=== PATIENT | male | born 1985 | race Caucasian/White ===

== ENCOUNTER 2021-07-28 15:05 | Emergency (ER) | payer BC ==
[~2021-07-28] VITALS: Ht 172.7 cm; Wt 79.4 kg
[2021-07-28] MEDS ORDERED: LIPITOR10 MG PO (15:14)
[2021-07-28 15:53] LABS: ABSOLUTE LYMPHOCYTES 2.2 thou/uL (0.8-5.3); ABSOLUTE MONOCYTES 0.7 thou/uL (0.0-1.2); ABSOLUTE NEUTROPHILS 4.9 thou/uL (1.6-8.1); BASOPHILS 0.4 %; EOSINOPHILS 0.2 %; HEMATOCRIT 42.3 % (42.0-52.0); HEMOGLOBIN 15.1 gm/dL (14.0-18.0); MCH 32.9 pg (26.0-34.0); MCHC 35.6 g/dL (28.0-37.0); MCV 92.3 fL (80.0-100.0); MONOCYTES 8.4 %; MPV 8.8 fl. (7.2-11.1); NUCLEATED RBCS 0 /100WBC; PLATELET COUNT* 256 thou/uL (150-400); RBC 4.59 mil/uL (4.50-6.00); RDW-CV 13.1 % (10.5-14.5); WBC 7.7 thou/uL (4.0-11.0)
[2021-07-28 15:58] LABS: CALCIUM 8.9 mg/dL (8.5-10.1); CREATININE 1.2 mg/dL (0.6-1.3); POTASSIUM 3.7 mmol/L (3.5-5.1)
[2021-07-28 16:08] LABS: ALBUMIN 4.2 g/dL (3.4-5.0); TOTAL BILIRUBIN 0.3 mg/dL (<0.1-1.0); TOTAL PROTEIN 7.8 g/dL (6.4-8.2)
[2021-07-28 16:47] LABS: URINE BILIRUBIN NEGATIVE (Negative); URINE BLOOD NEGATIVE (Negative); URINE CLARITY CLEAR; URINE COLOR YELLOW; URINE GLUCOSE-RANDOM NEGATIVE (Negative); URINE KETONES NEGATIVE (Negative); URINE LEUKOCYTES-REFLEX NEGATIVE (Negative); URINE NITRITE-REFLEX NEGATIVE (Negative); URINE PROTEIN NEGATIVE (Negative); URINE SPECIFIC GRAVITY 1.015 (1.005-1.030); URINE UROBILINOGEN 0.2 E.U./dl (0.2-1.0)
[2021-07-28 17:24] VITALS: BP 112/72
--- NOTE | 2021-07-29 10:25 | EKG ---
[place] [address] ELECTROCARDIOGRAM REPORT Name: EZEQUIEL SAMUEL Room: [facility]#: [id number] Admission: 07/28/21 Attend Phys: Discharge: 07/28/21 Date of : 83 Date of Service: 07/28/21 1521 Report #: [id number] THIS REPORT FOR: //name// [facility] ED Test Date: 2021-07-28 Test Time: 15:21:44 Pat Name: EZEQUIEL SAMUEL Department: Room: Gender: Dermatology Nurse: : 1985 Requested By: Stephani Major Order Number: [id number] MD: Leo Lassiter Measurements Intervals [place] Rate: 77 P: 83 MI: 119 QRS: 85 QRSD: 91 T: 85 QT: 374 QTc: 424 Interpretive Statements Sinus rhythm Borderline short MI interval Abnormal R-wave progression, early transition Minimal ST elevation, anterior leads, early repolarization Baseline wander in lead(s) I,II,aVR,aVF No previous ECG available for comparison Electronically Signed On 07-29-2021 10:25:18 CDT by Leo Lassiter [email or web address] <ELECTRONICALLY SIGNED> By: Leo Lassiter MD, FACC 07/29/21 1025 1521 1521 Leo Lassiter MD, FACC /EPI
== END 2021-07-28 17:24 | disposition home or self-care (01) ==
LOC: M.ERS 15:05
PROVIDERS: Nurse Practitioner Family
DX: R42 Dizziness and giddiness (principal); R20.2 Paresthesia of skin; R20.0 Anesthesia of skin; Z88.8 Allergy status to other drugs, medicaments and biological substances